=== PATIENT | male | born 1980 | race African-American/Black ===

== ENCOUNTER 2019-03-08 06:44 | Emergency (ER) | payer OTHER ==
[~2019-03-08] VITALS: Ht 190.5 cm; Wt 93.4 kg
[2019-03-08 07:40] LABS: ABSOLUTE NEUTROPHILS 4.6 thou/uL (1.4-8.2); BASOPHILS 0.7 % (0.0-2.0); EOSINOPHILS 2.7 % (0.0-3.0); HEMATOCRIT 38.5 % (42.0-52.0); HEMOGLOBIN 13.2 gm/dL (14.0-18.0); LYMPHOCYTES 21.5 % (24.0-44.0); MCH 31.3 pg (26.0-34.0); MCHC 34.3 g/dL (28.0-37.0); MCV 91.1 fL (80.0-100.0); MONOCYTES 7.1 % (1.0-8.0); PLATELET COUNT 217 thou/uL (150-400); RBC 4.22 mil/uL (4.50-6.00); RDW 14.1 % (10.5-14.5); WBC 6.8 thou/uL (4.0-11.0)
[2019-03-08 07:49] LABS: ANION GAP 8 mmol/L (7-16); BUN 13 mg/dL (7-18); CALCIUM 8.5 mg/dL (8.5-10.1); CHLORIDE 105 mmol/L (98-107); CO2 26 mmol/L (21-32); CREATININE 0.9 mg/dL (0.7-1.3); GLUCOSE 100 mg/dL (74-106); POTASSIUM 3.2 mmol/L (3.5-5.1); SODIUM 139 mmol/L (136-145)
[2019-03-08 07:54] LABS: SALICYLATE < 2.8 mg/dL (2.8-20.0)
[2019-03-08 09:31] LABS: URINE BILIRUBIN NEGATIVE (Negative); URINE BLOOD NEGATIVE (Negative); URINE CLARITY CLEAR; URINE COLOR YELLOW; URINE GLUCOSE-RANDOM* NEGATIVE (Negative); URINE KETONES NEGATIVE (Negative); URINE LEUKOCYTES-REFLEX NEGATIVE (Negative); URINE NITRITE-REFLEX NEGATIVE (Negative); URINE PROTEIN (DIPSTICK) NEGATIVE (Negative); URINE UROBILINOGEN 0.2 E.U./dl (0.2-1.0)
[2019-03-08 09:41] LABS: AMP/METHAMP Negative (Negative); BARBITURATES Negative (Negative); BENZODIAZEPINES Negative (Negative); COCAINE Negative (Negative); METHADONE Negative (Negative); OPIATES Negative (Negative); PCP POSITIVE (Negative)
[2019-03-08 10:45] VITALS: BP 136/70
== END 2019-03-08 10:45 | disposition home or self-care (01) ==
LOC: ER 06:44
PROVIDERS: Emergency Medicine
DX: F20.9 Schizophrenia, unspecified (principal); F17.210 Nicotine dependence, cigarettes, uncomplicated